=== PATIENT | female | born 1955 | race Caucasian/White ===

== ENCOUNTER → 2017-08-05 17:59 | Outpatient (CLI) | payer BC | END | disposition home or self-care (01) | LOC: D.MAMMO 15:00 | DX: Z12.31 Encounter for screening mammogram for malignant neoplasm of breast (principal) ==

== ENCOUNTER → 2017-10-31 10:40 | Outpatient (CLI) | payer BC | END | disposition home or self-care (01) | LOC: D.US 10:40 | DX: I82.402 Acute embolism and thrombosis of unspecified deep veins of left lower extremity (principal) ==